=== PATIENT | male | born 1965 | race Caucasian/White ===

== ENCOUNTER 2020-07-27 20:23 | Inpatient (IN) | payer OTHER ==
[~2020-07-27] VITALS: Ht 165.1 cm; Wt 71.9 kg
--- NOTE | 2020-07-27 20:30 | NUR ---
TO ER BED 9 AMBULATORY C/O NONRADIATING R FLANK PAIN X2 HRS. PT DENIES N/V/D. PT AAOX4 NO ACUTE DISTRESS NOTED, RESP EVEN AND UNLABORED. PENDING ER MD AHUMADA.
--- NOTE | 2020-07-27 20:43 | NUR ---
BLOOD COLLECTED AND SENT TO THE LAB.
[2020-07-27] MEDS ORDERED: ONDANSETRON HCL/PF 4 MG/2 ML VIAL ONE (20:44)
[2020-07-27] MEDS ORDERED: KETOROLAC TROMETHAMINE INJ 30 MG/ML VIAL ONE (20:45)
[2020-07-27] MEDS ORDERED: MORPHINE SULFATE INJ 4 MG/ML DISP.SYRIN ONE (20:45)
[2020-07-27] MEDS ORDERED: IV NS 0.9% 1,000 ML BAG IV ONE ×2 (21:00→22:00)
[2020-07-27] MEDS ORDERED: KETOROLAC TROMETHAMINE INJ 30 MG/ML VIAL IV ONE (21:00)
[2020-07-27] MEDS ORDERED: MORPHINE SULFATE INJ 2 MG/ML DISP.SYRIN IV ONE (21:00)
[2020-07-27] MEDS ORDERED: ONDANSETRON HCL/PF 4 MG/2 ML VIAL IVP ONE (21:00)
--- NOTE | 2020-07-27 21:09 | NUR ---
PT TRANSPORTED TO RADIOLOGY FOR CT ABD/PELVIS.
[2020-07-27 21:37] LABS: BASOPHILS # (AUTO) 0.1 /CMM (0.0-0.2); BASOPHILS % (AUTO) 0.4 % (0.0-2.0); EOSINOPHILS % (AUTO) 0.2 % (0.0-6.0); WHITE BLOOD COUNT (AUTO) 15.6 K/uL (4.3-11.0)
[2020-07-27 21:39] LABS: BILIRUBIN,URINE NEGATIVE (NEGATIVE); COLOR,URINE YELLOW (YELLOW); LEUKOCYTE ESTERASE ,URINE NEGATIVE (NEGATIVE); NITRITE, URINE NEGATIVE (NEGATIVE); PROTEIN,URINE NEGATIVE (NEGATIVE); UGLUCOSE NEGATIVE (NEGATIVE); UROBILINOGEN,URINE 0.2 EU/dL (0.2)
[2020-07-27 21:45] LABS: HEMATOCRIT 37 % (39-51); HEMOGLOBIN 11.4 g/dL (13.5-17.5); LYMPHOCYTES % (AUTO) 6.3 % (20.0-44.0); MEAN CORPUSCULAR HGB CONC 31 g/dl (31.0-36.0); MEAN CORPUSCULAR VOLUME 75 fL (80-96); MONOCYTES # (AUTO) 0.8 /CMM (0.1-1.30); MONOCYTES % (AUTO) 4.9 % (2.0-12.0); NEUTROPHILS # (AUTO) 13.8 /CMM (1.8-8.9); NEUTROPHILS % (AUTO) 88.2 % (43.0-81.0); PLATELET COUNT (AUTO) 374 /CMM (150-450); RED BLOOD CELL COUNT(AUTO) 4.89 MIL/uL (4.5-6.0)
[2020-07-27 21:52] LABS: ALBUMIN 3.8 g/dL (3.4-5.0); BILIRUBIN,DIRECT 0.1 mg/dL (0.0-0.2); BILIRUBIN,TOTAL 0.2 mg/dL (0.2-1.0); CALCIUM, SERUM 8.5 mg/dL (8.5-10.1); CREATININE 1.1 mg/dL (0.6-1.3); POTASSIUM 3.7 mmol/L (3.5-5.1); TOTAL PROTEIN, SERUM 7.3 g/dL (6.4-8.2)
--- NOTE | 2020-07-27 22:17 | NUR ---
RADIOLOGIST SPOKE TO DR. SANCHEZ Heck REGARDING CT RESULT.
--- NOTE | 2020-07-27 22:23 | NUR ---
ATTEMPTED TO CONTACT DR. ADAMS ([facility] REGISTERED NURSE SURGERY) PER DR. BRADFORD REQUEST. LEFT MESSAGE
[2020-07-27] MEDS ORDERED: PIPERACILLIN /TAZOBACTAM 3.375 G in IV D5W 50 ML IV ONE (22:30)
[2020-07-27] MEDS ORDERED: PIPERACILLIN /TAZOBACTAM 3.375 G VIAL IV ONE (22:32)
--- NOTE | 2020-07-27 22:34 | NUR ---
COVID SWAB COLLECTED AND SENT TO THE LAB.
--- NOTE | 2020-07-27 22:51 | NUR ---
PAGED DR. ADAMS
--- NOTE | 2020-07-27 23:24 | NUR ---
INFORMED DR. ADAMS OF CT RESULTS
--- NOTE | 2020-07-27 23:28 | NUR ---
LAB CALLED REGARDING NEGATIVE COVID RESULT.
[2020-07-28] VITALS (13 sets, daily range): BP systolic 110–125; BP diastolic 64–79
--- NOTE | 2020-07-28 00:27 | NUR ---
DR. BRADFORD SPEAKING WITH DR. MECHE NAQVI REGARDING ADMISSION
[2020-07-28] MEDS: IV D5/ 0.9% NACL 1,000 ML IV PRN ×2 (02:50→11:48)
--- NOTE | 2020-07-28 02:59 | NUR ---
PT ASLEEP, EASILY AROUSABLE. PT DENIES PAIN OR DISCOMFORT AT THIS TIME. NO ACUTE DISTRESS NOTED, RESP EVEN AND UNLABORED. CALL LIGHT WITHIN REACH. WILL CONTINUE TO MONITOR PT CLOSELY.
[2020-07-28] MEDS ORDERED: MORPHINE SULFATE INJ 2 MG/ML DISP.SYRIN IV PRN (03:00)
[2020-07-28] MEDS ORDERED: ACETAMINOPHEN 650 MG/SUPP.RECT RC PRN (03:00)
[2020-07-28] MEDS ORDERED: ONDANSETRON HCL/PF 4 MG/2 ML VIAL IVP PRN (03:00)
[2020-07-28 03:22] LABS: IRON, SERUM 13 ug/dl (50-175); TOTAL IRON BINDING CAPACITY 496 ug/dl (250-450)
--- NOTE | 2020-07-28 05:45 | NUR ---
PER DR. ADAMS, ETA 1 HR TO EVALUATE PATIENT
[2020-07-28] MEDS ORDERED: ANESTHESIA TRAY IN PYXIS 1 EA TRAY MC ONE (07:26)
[2020-07-28] MEDS ORDERED: FINA1TAB11 PO (07:42)
[2020-07-28] MEDS ORDERED: ASPI-1169 PO (07:42)
[2020-07-28] MEDS ORDERED: OLAN2.5T3 PO (07:42)
--- NOTE | 2020-07-28 07:48 | NUR ---
REPORT GIVEN TO LANDEN URBINA FOR LILLY.
[2020-07-28] MEDS ORDERED: MIDAZOLAM HCL 2 MG/2ML VIAL ONE (08:26)
[2020-07-28] MEDS ORDERED: FENTANYL PF 250MCG/5ML AMPUL ONE (08:27)
[2020-07-28] MEDS ORDERED: PANTOPRAZOLE 40 MG VIAL IV SCH (09:00)
[2020-07-28] MEDS ORDERED: METHYLENE BLUE 10 ML VIAL ONE (09:10)
[2020-07-28] MEDS: FAMOTIDINE/PF INJ 20 MG/2 ML VIAL IV SCH ×2 (11:35→20:16)
--- NOTE | 2020-07-28 12:00 | NUR ---
MONICA RN ADMITTING NOTES PT ADMITTED TO UNIT AT 1115 FROM [facility]. ACCOMPANIED BY [facility]. LANDEN WARD. PT IS S/P EXPLORATORY LAPAROTOMY BY DR ADAMS. PT IS A/O X3-4. VERBALLY RESPONSIVE AND SLIGHTLY LETHARGIC AT THIS TIME, DENIES PAIN OR ANY DISCOMFORTS AT THIS TIME. V/S TAKEN STABLE AND RECORDED. ON SUPPLEMENTAL O2 VIA MASK AT 2LPM, BREATHING EVEN AND UNLABORED. PT HAS DRESSING TO MID ABDOMEN C/D/I WITH CONCEPCIÓN DRAIN IN PLACE WITH SMALL AMOUNT OF BLOODY DRAINAGE NOTED. PT WITH NG-TUBE IN PLACE TO RIGHT NARE CONNECTED TO LOW INTERMITTENT SUCTION WITH SMALL AMOUNT OF THIN GREENISH OUTPUT NOTED. PT HAS IV ACCESS NOTED TO LFA G#18, IVF OF D5 NS @ 80ML/HR STARTED. JACOBSON IN PLACE WITH CLEAR YELLOW URINE NOTED DRAINING TO GRAVITY. SAFETY MEASURES INITIATED: BED PLACED IN LOWEST LOCKED POSITION WITH SR-UP X2, CALL LIGHT W/I EASY REACH OF PT. WILL CONTINUE TO MONITOR PT ACCORDINGLY.
[2020-07-28] MEDS: METRONIDAZOLE 500MG/ NS 100ML 500 MG in PREMIX 1 EA IV SCH ×2 (13:48→20:11)
[2020-07-28] MEDS: MORPHINE SULFATE INJ 4 MG/ML DISP.SYRIN IV PRN ×2 (16:16→20:54)
[2020-07-28] MEDS: ANCEF 1 GM/50 ML D5W IV SCH ×2 (16:59)
--- NOTE | 2020-07-28 18:42 | NUR ---
MS RN CLOSING NOTES PT IN BED AWAKE AND RESTING AT SEMI-CHAUHAN'S POSITION. A/O X4. ABLE TO MAKE NEEDS KNOWN. V/S TAKEN, STABLE AND RECORDED. ON ROOM AIR, BREATHING EVEN AND UNLABORED. DRESSING TO MID ABDOMEN C/D/I WITH CONCEPCIÓN DRAIN IN PLACE WITH SMALL AMOUNT OF BLOODY DRAINAGE NOTED. PT WITH NG-TUBE IN PLACE TO RIGHT NARE CONNECTED TO LOW INTERMITTENT SUCTION WITH SMALL AMOUNT OF THIN GREENISH OUTPUT NOTED. IV ACCESS ON LFA G#18 INTACT AND PATENT, IVF OF D5 NS @ 80ML/HR RUNNING, NO S/S OF INFILTRATIONS NOTED. JACOBSON IN PLACE WITH CLEAR YELLOW URINE NOTED DRAINING TO GRAVITY, JACOBSON CARE DONE. ALL NEEDS NAD CARE ATTENDED WELL. SAFETY MEASURES INITIATED: BED PLACED IN LOWEST LOCKED POSITION WITH SR-UP X2, CALL LIGHT W/I EASY REACH OF PT. WILL ENDORSE TO NIGHT NURSE FOR LILLY.
[2020-07-29] MEDS: ANCEF 1 GM/50 ML D5W IV SCH ×6 (00:13→19:40)
[2020-07-29] MEDS: METRONIDAZOLE 500MG/ NS 100ML 500 MG in PREMIX 1 EA IV SCH ×3 (04:37→20:06)
--- NOTE | 2020-07-29 04:41 | NUR ---
RN NOTES : DR. MCGREGOR NOTIFIED OF PT. TEMP 101.0 AND TYLENOL SUPPOSITORIES GIVEN , APPLIED COOLING MEASURES , DR. MCGREGOR NO NEW ORDERS GIVEN , AT 2100 TEMP 101.0 ,AT 2200 T 100.9 , AT 2300 T 100.5, AT 0000 T 100.2, AT 0100 T 99.6 ,AT 0200 T 99.0 , 0300 T 98.9 WILL CONTINUE WITH CARE.
[2020-07-29] MEDS: MORPHINE SULFATE INJ 4 MG/ML DISP.SYRIN IV PRN ×5 (05:16→20:07)
[2020-07-29] MEDS: IV D5/ 0.9% NACL 1,000 ML IV PRN (06:59)
[2020-07-29 07:06] LABS: BASOPHILS % (AUTO) 0.5 % (0.0-2.0); HEMATOCRIT 30 % (39-51); HEMOGLOBIN 9.2 g/dL (13.5-17.5); LYMPHOCYTES # (AUTO) 0.4 /CMM (0.8-4.8); LYMPHOCYTES % (AUTO) 5.3 % (20.0-44.0); MEAN CORPUSCULAR HGB CONC 31 g/dl (31.0-36.0); MEAN CORPUSCULAR VOLUME 75 fL (80-96); MONOCYTES # (AUTO) 0.5 /CMM (0.1-1.30); MONOCYTES % (AUTO) 7.7 % (2.0-12.0); NEUTROPHILS % (AUTO) 86.5 % (43.0-81.0); PLATELET COUNT (AUTO) 255 /CMM (150-450); RED BLOOD CELL COUNT(AUTO) 4.06 MIL/uL (4.5-6.0)
--- NOTE | 2020-07-29 07:43 | NUR ---
MS RN OPENING NOTES RECEIVED PT IN BED AWAKE, A/O X4. ABLE TO MAKE NEEDS KNOWN, DENIES PAIN OR ANY DISCOMFORTS AT THIS TIME. ON ROOM AIR, BREATHING EVEN AND UNLABORED. DRESSING TO MID ABDOMEN SURGICAL SITE C/D/I WITH CONCEPCIÓN DRAIN IN PLACE WITH SMALL AMOUNT OF SANGUINEOUS DRAINAGE NOTED. NG-TUBE IN PLACE TO RIGHT NARE CONNECTED TO LOW INTERMITTENT SUCTION WITH SMALL AMOUNT OF THIN GREENISH OUTPUT NOTED. IV ACCESS ON LFA G#18 INTACT AND PATENT, IVF OF D5 NS @ 80ML/HR INFUSING, NO S/S OF INFILTRATIONS NOTED. JACOBSON IN PLACE WITH CLEAR YELLOW URINE NOTED DRAINING TO GRAVITY. SAFETY MEASURES IN PLACE: BED IN LOWEST LOCKED POSITION WITH SR-UP X2, CALL LIGHT W/I EASY REACH OF PT. WILL CONTINUE TO MONITOR PT.
[2020-07-29 07:49] LABS: CALCIUM, SERUM 7.7 mg/dL (8.5-10.1); CREATININE 0.9 mg/dL (0.6-1.3); MAGNESIUM 1.8 mg/dL (1.8-2.4); PHOSPHORUS 1.9 mg/dL (2.5-4.9); POTASSIUM 3.6 mmol/L (3.5-5.1)
[2020-07-29 08:00] VITALS: BP 165/102
--- NOTE | 2020-07-29 08:02 | NUR ---
RN NOTES PT IN BED AWAKE ALERT AND RESTING AT HIS BED. NO ACUTE DISTRESS NOTED. DRESSING TO MID ABDOMEN C/D/I WITH CONCEPCIÓN DRAIN IN PLACE WITH BLOODY DRAINAGE 120 ML OUT PUT . PT WITH NG-TUBE IN PLACE TO RIGHT NARES TO LOW INTERMITTENT SUCTION WITH SMALL AMOUNT OF THIN GREENISH OUTPUT NOTED. IV ACCESS ON LFA G#18 INTACT AND PATENT, IVF OF D5 NS @ 80ML/HR RUNNING, NO S/S OF INFILTRATIONS NOTED. JACOBSON IN PLACE WITH CLEAR YELLOW URINE NOTED . ALL NEEDS ATTENDED ANTICIPATED, ENDORSE TO DAY NURSE FOR CONTINUITY WITH CARE.
[2020-07-29] MEDS: FAMOTIDINE/PF INJ 20 MG/2 ML VIAL IV SCH ×2 (08:41→20:07)
--- NOTE | 2020-07-29 08:47 | NUR ---
RN NOTES PT C/O PAIN ON ABDOMINAL SURGICAL SITE WITH SCALE OF 8/10. PRN MORPHINE 4MG/ML IVP ADMINISTERED AT 0843. WILL CONTINUE TO MONITOR AND REASSESS PT.
--- NOTE | 2020-07-29 10:32 | NUR ---
RN NOTES PT SEEN AND EVALUATED BY DR ADAMS WITH ORDERS TO REMOVE NGT AND JACOBSON CATHETER, PHYSICAL EVALUATION AND TO MAINTAIN PT ON NPO BUT "OK' TO GIVE ICE CHIPS ONLY. ORDERS CARRIED OUT. WILL CONTINUE TO MONITOR
[2020-07-29 10:36] LABS: ALBUMIN 2.6 g/dL (3.4-5.0); BILIRUBIN,TOTAL 0.4 mg/dL (0.2-1.0); CALCIUM, SERUM 7.9 mg/dL (8.5-10.1); CREATININE 0.8 mg/dL (0.6-1.3); POTASSIUM 3.9 mmol/L (3.5-5.1); TOTAL PROTEIN, SERUM 6.2 g/dL (6.4-8.2)
[2020-07-29] MEDS ORDERED: Sodium Phosphate 15 MMOL in IV NS 0.9% 245 ML IV SCH (13:00)
[2020-07-29] MEDS: SOD FERRIC GLUC 125 MG in IV NS 0.9% 100 ML IV SCH (14:30)
--- NOTE | 2020-07-29 15:05 | NUR ---
RN NOTES PT C/O PAIN ON ABDOMINAL SURGICAL SITE WITH SCALE OF 10/10. PRN MORPHINE 4MG/ML IVP ADMINISTERED AT 1502. WILL CONTINUE TO MONITOR AND REASSESS PT.
[2020-07-29 16:00] VITALS: BP 164/65
--- NOTE | 2020-07-29 18:54 | NUR ---
MS RN CLOSING NOTES PT IN BED RESTING AT MODERATE HIGH BACKREST POSITION. A/O X4. ABLE TO MAKE NEEDS KNOWN. ON ROOM AIR, BREATHING EVEN AND UNLABORED. DRESSING TO MID ABDOMEN C/D/I WITH CONCEPCIÓN DRAIN IN PLACE WITH SANGUINEOUS DRAINAGE NOTED. IV ACCESS ON LFA G#18 INTACT AND PATENT, IVF RUNNING ORDERED, NO S/S OF INFILTRATIONS NOTED. ALL NEEDS AND CARE ATTENDED WELL. SAFETY MEASURES MAINTAINED: BED IN LOWEST LOCKED POSITION WITH SR-UP X2, CALL LIGHT W/I EASY REACH OF PT. WILL ENDORSE TO NIGHT NURSE FOR LILLY.
--- NOTE | 2020-07-29 19:20 | NUR ---
RN OPENING NOTE RECEIVED PATIENT IN BED RESTING ALERT ORIENTED [id number] RESPONSIVE ABLE TO MAKE NEEDS KNOWN,ON ROOM AIR O2:94% NPO EXCEPT ICE CHIPS,IV SITE IS ON RIGHT FOREARM INTACT PATENT,D5 NS IV HYDRATION IS RUNNING 80CC/HR,CÉSAR-BELLA IN PLACE WITH DRAINING BLOODY FLUID,CONTINENT TO BOWEL AND BLADER AMBULATORY WITH ASSIST,BED IN LOW POSITION AND LOCKED,BED ALARM IS ON,CALL LIGHT WITHIN REACH,CONTINUE TO MONITOR.
[2020-07-29 22:00] VITALS: BP 158/98
[2020-07-30] MEDS: ANCEF 1 GM/50 ML D5W IV SCH ×6 (00:16→17:51)
[2020-07-30] MEDS: METRONIDAZOLE 500MG/ NS 100ML 500 MG in PREMIX 1 EA IV SCH ×3 (04:22→21:27)
[2020-07-30] MEDS: MORPHINE SULFATE INJ 4 MG/ML DISP.SYRIN IV PRN ×4 (04:33→23:32)
[2020-07-30] MEDS: IV D5/ 0.9% NACL 1,000 ML IV PRN (06:05)
--- NOTE | 2020-07-30 06:32 | NUR ---
RN CLOSING NOTE PATIENT REMAINS ON ALERT ORIENTED X4 VERBALLY RESPONSIVE NO SOB NOT ACUTE DISTRESS NOTED,HE IS NPO AMBULATORY IV SITE IS ON RIGHT FOREARM INTACT PATENT D5NS 80CC/HR RUNNING ALL DUE MEDS GIVEN MD ORDERED KEPT CLEAN AND DRY ALL THE TIME,KEPT COMFORTABLE,KEPT CALL LIGHT WITHIN REACH,ALL NEEDS MET ENDORSE NEXT COMING SHIFT FOR CONTINUATION OF CARE.
[2020-07-30 07:29] LABS: BASOPHILS % (AUTO) 0.6 % (0.0-2.0); EOSINOPHILS % (AUTO) 1.6 % (0.0-6.0); HEMATOCRIT 29 % (39-51); HEMOGLOBIN 9.2 g/dL (13.5-17.5); LYMPHOCYTES # (AUTO) 0.7 /CMM (0.8-4.8); MEAN CORPUSCULAR HGB CONC 31 g/dl (31.0-36.0); MEAN CORPUSCULAR VOLUME 74 fL (80-96); MONOCYTES # (AUTO) 0.6 /CMM (0.1-1.30); MONOCYTES % (AUTO) 8.6 % (2.0-12.0); NEUTROPHILS # (AUTO) 5.2 /CMM (1.8-8.9); NEUTROPHILS % (AUTO) 78.2 % (43.0-81.0); PLATELET COUNT (AUTO) 267 /CMM (150-450); RED BLOOD CELL COUNT(AUTO) 3.99 MIL/uL (4.5-6.0); WHITE BLOOD COUNT (AUTO) 6.6 K/uL (4.3-11.0)
--- NOTE | 2020-07-30 07:30 | NUR ---
RN MED SURG3 PATIENT IN BED, NO S/S OF DISTRESS, A/O X4, ON ROOM AIR, O2 SAT> 97%, BATHROOM PRIVILEGES, NPO, SKIN INTACT, FRA 18G FLUSHES WELL CLEAN DRY INTACT, D 5NS RUNNING 80ML/HR, 20ML OUT OF SINDY PRAT DRAIN IN ABDOMEN, BED IN LOWEST LOCKED POSITION, CALL LIGHT WITHIN REACH, SAFETY MEASURES IN PLACE, WILL CONTINUE TO MONITOR.
[2020-07-30 07:43] LABS: ALBUMIN 2.5 g/dL (3.4-5.0); BILIRUBIN,TOTAL 0.3 mg/dL (0.2-1.0); CALCIUM, SERUM 8.1 mg/dL (8.5-10.1); CREATININE 0.8 mg/dL (0.6-1.3); PHOSPHORUS 2.1 mg/dL (2.5-4.9); POTASSIUM 3.7 mmol/L (3.5-5.1); TOTAL PROTEIN, SERUM 6.1 g/dL (6.4-8.2)
[2020-07-30 08:00] VITALS: BP 160/90
[2020-07-30] MEDS: FAMOTIDINE/PF INJ 20 MG/2 ML VIAL IV SCH ×2 (09:10→21:27)
[2020-07-30] MEDS: VALSARTAN 80 MG TABLET PO SCH (09:12)
[2020-07-30 10:00] VITALS: BP 160/90
--- NOTE | 2020-07-30 10:44 | NUR ---
patient reported 8/10 abdominal pain at the incision site. asked for the morphine he has been receiving regularly.
[2020-07-30] MEDS ORDERED: NEUTRA PHOS 1 POWD.PACKET NG ONE ×2 (14:30→15:00)
[2020-07-30] MEDS: SOD FERRIC GLUC 125 MG in IV NS 0.9% 100 ML IV SCH (14:54)
[2020-07-30] MEDS ORDERED: K PHOS NEUTRAL 250 MG TABLET PO ONE (15:00)
--- NOTE | 2020-07-30 15:00 | NUR ---
RN MED SURG3 NO NG TUBE IN PLACE, CALLED PHARMACY TO CHANGE ADMINISTRATION ROUTE FOR K PHOS TO PO.
[2020-07-30 16:00] VITALS: BP 154/89
--- NOTE | 2020-07-30 19:20 | NUR ---
RN MED SURG3 PATIENT IN BED, NO S/S OF DISTRESS, A/O X4, ON ROOM AIR, O2 SAT> 97%, BATHROOM PRIVILEGES, FULL LIQUID DIET, SKIN INTACT, LEFT AC 22G FLUSHES WELL CLEAN DRY INTACT, D 5NS RUNNING 80ML/HR, 20ML OUT OF SINDY PRAT DRAIN IN ABDOMEN, BED IN LOWEST LOCKED POSITION, CALL LIGHT WITHIN REACH, SAFETY MEASURES IN PLACE, WILL CONTINUE TO MONITOR.
[2020-07-30 20:00] VITALS: BP 154/100
--- NOTE | 2020-07-30 20:00 | NUR ---
ms vinny initial notes received report from am nurse and seen patient in bed awake and alert watching TV at this time. with IVF D5NS at 80ml/hr infusing at this time. CONCEPCIÓN still intact small amount of output noted. Denies any pain or any discomfort. he only asked something to eat like jelo. kept him warm and comfortable at all times. will continue monitoring. place call light at reach.
[2020-07-30 22:00] VITALS: BP 140/86
--- NOTE | 2020-07-30 23:35 | NUR ---
ms vinny notes' c/o abdominal pain where the surgery site , Morphine IVP given by another nurse gordy IVP as ordered. snacks also served. will continue monitoring.
[2020-07-31] MEDS: ANCEF 1 GM/50 ML D5W IV SCH ×6 (01:02→17:39)
[2020-07-31] MEDS: METRONIDAZOLE 500MG/ NS 100ML 500 MG in PREMIX 1 EA IV SCH ×2 (04:55→12:34)
[2020-07-31 07:13] LABS: BASOPHILS % (AUTO) 0.6 % (0.0-2.0); HEMATOCRIT 30 % (39-51); HEMOGLOBIN 9.4 g/dL (13.5-17.5); LYMPHOCYTES % (AUTO) 16.3 % (20.0-44.0); MEAN CORPUSCULAR HGB CONC 32 g/dl (31.0-36.0); MEAN CORPUSCULAR VOLUME 73 fL (80-96); MONOCYTES # (AUTO) 0.5 /CMM (0.1-1.30); NEUTROPHILS # (AUTO) 4.1 /CMM (1.8-8.9); NEUTROPHILS % (AUTO) 70.1 % (43.0-81.0); PLATELET COUNT (AUTO) 300 /CMM (150-450); RED BLOOD CELL COUNT(AUTO) 4.07 MIL/uL (4.5-6.0); WHITE BLOOD COUNT (AUTO) 5.9 K/uL (4.3-11.0)
--- NOTE | 2020-07-31 07:16 | NUR ---
ms aegis console operator track closing notes pt back to sleep after blood draw done. all due meds given and all needs met. IVF still infusing on his left AC but pt requested to disconnect specially at night. CONCEPCIÓN had 10 ml output noted. denies any pain or any discomfort at this time. He just want to back to sleep at this time. will endorse to am nurse for continuity of care.
[2020-07-31 07:51] LABS: CALCIUM, SERUM 8.4 mg/dL (8.5-10.1); CREATININE 0.8 mg/dL (0.6-1.3); PHOSPHORUS 3.5 mg/dL (2.5-4.9)
--- NOTE | 2020-07-31 07:51 | NUR ---
MS RN OPENING NOTE PATIENT IS IN BED RESTING. PATIENT IS IN NO ACUTE DISTRESS. PATIENT IS ON ROOM AIR. NO SOB NOTED. SAFETY PRECAUTIONS ARE IN PLACE. BED IS LOCKED AND IN THE LOWEST POSITION. SIDE RAILS ARE UP, CALL LIGHT WITHIN REACH. WILL CONTINUE TO MONITOR CLOSELY THROUGH OUT THE SHIFT.
[2020-07-31 08:00] VITALS: BP 135/97
[2020-07-31] MEDS: MORPHINE SULFATE INJ 4 MG/ML DISP.SYRIN IV PRN (08:14)
[2020-07-31] MEDS: VALSARTAN 80 MG TABLET PO SCH (08:24)
[2020-07-31] MEDS: FAMOTIDINE/PF INJ 20 MG/2 ML VIAL IV SCH (08:24)
[2020-07-31 10:00] VITALS: BP 135/97
[2020-07-31 12:20] LABS: EOSINOPHILS % (MANUAL) 3 % (0-4); LYMPHOCYTES % (MANUAL) 20 % (16-48); MONOCYTES % (MANUAL) 7 % (0-11.0); NEUTROPHILS % (MANUAL) 70 (42-76)
[2020-07-31] MEDS: SOD FERRIC GLUC 125 MG in IV NS 0.9% 100 ML IV SCH (14:58)
[2020-07-31 16:00] VITALS: BP 134/78
[2020-07-31] MEDS ORDERED: TAMS-12 PO (18:27)
[2020-07-31] MEDS ORDERED: PANT40TA2 PO (18:27)
[2020-07-31] MEDS ORDERED: HYDR-4354 PO (18:27)
[2020-07-31] MEDS ORDERED: HYDR-4279 PO (18:29)
--- NOTE | 2020-07-31 19:20 | NUR ---
MS RN CLOSING NOTE PATIENT IS IN BED RESTING. PATIENT IN NO ACUTE DISTRESS. PATIENT IS ON ROOM AIR. NO SOB NOTED. HOB ELEVATED. SAFETY PRECAUTIONS ARE IN PLACE. BED IN THE LOWEST POSITION WITH BED ALARM ON. SIDE RAILS ARE UP, CALL LIGHT WITHIN REACH. ENDORSE PATIENTS TO THE DIAL EQUIPMENT ENGINEER NURSE FOR LILLY.
--- NOTE | 2020-07-31 19:30 | NUR ---
RN NOTES PATIENT IS IN BED RESTING. PATIENT IN NO ACUTE DISTRESS. PATIENT IS ON ROOM AIR. NO SOB NOTED. HOB ELEVATED. SAFETY PRECAUTIONS ARE IN PLACE. BED IN THE LOWEST POSITION WITH BED ALARM ON. SIDE RAILS ARE UP, CALL LIGHT WITHIN REACH. FOR DISCHARGE TONIGHT. WILL CONTINUE TO MONITOR.
--- NOTE | 2020-07-31 19:45 | NUR ---
RN NOTES PATIENT DISCHARGED CAME TO PICK HIM UP PAPERWORK PROVIDED AND DISCHARGE INSTRUCTIONS EXPLAINED.RN ESCORTED PATIENT TO EXIT WERE MET THE PATIENT.
== END 2020-07-31 19:45 | disposition home or self-care (01) | DRG 326 ==
LOC: ER 20:28 → TRANSITION 07-28 00:46 → MED 07-28 07:30
PROVIDERS: ADMIT Registered Nurse; ATTEND Nurse Practitioner Acute Care
PROC: 0DQ90ZZ Repair Duodenum, Open Approach (ICD-10-PCS; principal; 2020-07-28)
PROC: 0WQF0ZZ Repair Abdominal Wall, Open Approach (ICD-10-PCS; 2020-07-28)
DX: K26.5 Chronic or unspecified duodenal ulcer with perforation (principal); K65.9 Peritonitis, unspecified; K40.90 Unilateral inguinal hernia, without obstruction or gangrene, not specified as recurrent; K42.9 Umbilical hernia without obstruction or gangrene; K44.9 Diaphragmatic hernia without obstruction or gangrene; K66.8 Other specified disorders of peritoneum; F41.9 Anxiety disorder, unspecified; F12.90 Cannabis use, unspecified, uncomplicated; E86.0 Dehydration; D50.9 Iron deficiency anemia, unspecified; E83.39 Other disorders of phosphorus metabolism; F14.11 Cocaine abuse, in remission
CPT/HCPCS: 36415; 71045-TC; 80048-TC; 80053-TC; 80076-TC; 82378; 83540-TC; 83690-TC; 83735-TC; 84100-TC; 85025-TC; 85730-TC; 86850-TC; 87070-TC; 87081-TC; 88302-TC; 93307-TC; 97112-TC; 97116-TC; 97530-TC; A4216; A4217; A9563; C9803; G0378; J0690; J1885; J2250; J2270; J2405; J2543; J2704; J2765; J2916; J3010; J3490; J7030; J7042; J7050; J7060; Q9968